=== PATIENT | female | born 1995 | race Caucasian/White ===

== ENCOUNTER → 2016-12-31 | Outpatient (CLI) | payer BC | LOC: MAMO 08:53 | DX: N63 Unspecified lump in breast (principal) | CPT/HCPCS: 76641-RT; G0206 ==

== ENCOUNTER 2021-04-30 16:42 | Inpatient (IN) | payer BC ==
[~2021-04-30 16:42] MED LIST: AUGMENTIN 875-1 EACH PO; IBUPROFEN600 MG PO
[2021-04-30 18:24] LABS: HEMOGLOBIN 9.2 gm/dl (12.3-15.3); RED BLOOD COUNT 3.39 M/UL (4.00-5.10); WHITE BLOOD COUNT 9.2 K/UL (4.5-11.0)
[2021-05-02] MEDS ORDERED: PERCOCET 5/325 T1 EA PO (21:48)
[2021-05-02] MEDS ORDERED: IBUPROFEN800 MG PO (21:48)
[2021-05-02] MEDS ORDERED: COLACE100 MG PO (21:48)
[2021-05-03 06:42] LABS: HEMOGLOBIN 8.1 gm/dl (12.3-15.3)
== END 2021-05-04 12:18 | disposition home or self-care (01) | DRG 807 ==
LOC: GENOP 16:42 → OB 16:59
PROVIDERS: ADMIT Obstetrics & Gynecology
PROC: 10E0XZZ Delivery of Products of Conception, External Approach (ICD-10-PCS; principal; 2021-04-30)
PROC: 0KQM0ZZ Repair Perineum Muscle, Open Approach (ICD-10-PCS; 2021-04-30)
PROC: 10907ZC Drainage of Amniotic Fluid, Therapeutic from Products of Conception, Via Natural or Artificial Opening (ICD-10-PCS; 2021-04-30)
PROC: 0U7C7ZZ Dilation of Cervix, Via Natural or Artificial Opening (ICD-10-PCS; 2021-04-30)
DX: O70.1 Second degree perineal laceration during delivery (principal); Z37.0 Single live birth; Z3A.38 38 weeks gestation of pregnancy; Z20.822 Contact with and (suspected) exposure to COVID-19
CPT/HCPCS: 36415; 51702; 81001; 85014; 85018; 85025; 85461; 86900; 86901; J2405; J2590; J2795; J7120